=== PATIENT | female | born 1980 | race Two or more races ===

== ENCOUNTER 2019-10-01 22:58 | Emergency (ER) | payer OTHER ==
[~2019-10-01] VITALS: Ht 157.5 cm; Wt 59.9 kg
[2019-10-01] MEDS ORDERED: ACETAMINOPHEN ES 500 MG TABLET ONE (23:55)
[2019-10-01] MEDS ORDERED: IPRATROPIUM BROMIDE 0.5 MG/2.5 ML NEBU ONE (23:59)
[2019-10-01] MEDS ORDERED: ALBUTEROL SULFATE 2.5 MG/3 ML NEBU ONE (23:59)
[2019-10-02] MEDS ORDERED: ALBUTEROL SULFATE 2.5 MG/3 ML NEBU NEB ONE
[2019-10-02] MEDS ORDERED: IPRATROPIUM BROMIDE 0.5 MG/2.5 ML NEBU NEB ONE
[2019-10-02] MEDS ORDERED: ACETAMINOPHEN ES 500 MG TABLET PO ONE
--- NOTE | 2019-10-02 00:10 | NUR ---
RT AT BEDSIDE
--- NOTE | 2019-10-02 00:13 | NUR ---
[employer] SALESPERSON AT BEDSIDE
[2019-10-02 00:25] LABS: CREATININE 0.8 mg/dL (0.6-1.3); POTASSIUM 3.3 mmol/L (3.5-5.1)
[2019-10-02 00:35] LABS: BASOPHILS % (AUTO) 0.4 % (0.0-2.0); EOSINOPHILS # (AUTO) 0.1 K/uL (0.0-0.7); EOSINOPHILS % (AUTO) 0.8 % (0.0-7.0); HEMATOCRIT 39.8 % (31.2-41.9); HEMOGLOBIN 13.7 g/dL (10.9-14.3); LYMPHOCYTES # (AUTO) 1.1 K/uL (20.0-40.0); LYMPHOCYTES % (AUTO) 11.9 % (20.5-51.5); MEAN CORPUSCULAR HEMOGLOBIN 29.5 uug (24.7-32.8); MEAN CORPUSCULAR HGB CONC 34 g/dL (32.3-35.6); MEAN CORPUSCULAR VOLUME 86.2 fL (75.5-95.3); MONOCYTES # (AUTO) 0.9 K/uL (2.0-10.0); NEUTROPHILS # (AUTO) 7.1 K/uL (1.8-8.9); NEUTROPHILS % (AUTO) 76.9 % (38.5-71.5); PLATELET COUNT (AUTO) 211 K/uL (179-408); RED BLOOD CELL COUNT(AUTO) 4.62 MIL/uL (3.63-4.92); WHITE BLOOD COUNT (AUTO) 9.3 K/uL (3.8-11.8)
[2019-10-02 01:10] LABS: *URINE HCG, QUAL NEGATIVE (NEGATIVE)
--- NOTE | 2019-10-02 01:29 | NUR ---
Patient discharged to home in stable conditon. Written and verbal after care instructions given. Patient verbalizes understanding of instructions. ambulatory w/ stable gait all belongings w/ pt
[2019-10-02 01:38] VITALS: BP 109/86
== END 2019-10-02 01:38 | disposition home or self-care (01) ==
LOC: ER 23:01
DX: J06.9 Acute upper respiratory infection, unspecified (principal); R51 Headache; R07.89 Other chest pain
CPT/HCPCS: 36415; 70030-TC; 71046; 84703; 85025; 87400; 93005; A4663; A9150; J3590

== ENCOUNTER 2019-10-05 15:30 | Emergency (ER) | payer OTHER ==
[~2019-10-05] VITALS: Ht 157.5 cm; Wt 59.9 kg
--- NOTE | 2019-10-05 16:12 | NUR ---
Copies of all diagnostic tests' results dated last September were given to patient per patient's request.
--- NOTE | 2019-10-05 16:14 | NUR ---
Patient discharged to home in stable condition with brisk steady gait. Written and verbal after care instructions given to patient. Patient verbalized understanding & compliance of instructions.
== END 2019-10-05 16:16 | disposition home or self-care (01) ==
LOC: ER 15:34
DX: J06.9 Acute upper respiratory infection, unspecified (principal)
CPT/HCPCS: A4663